=== PATIENT | female | born 1960 | race Caucasian/White ===

== ENCOUNTER → 2016-06-23 | Outpatient (CLI) | payer OTHER ==
[2016-06-23 08:20] LABS: FREE T4 1.18 NG/DL (0.76-1.46)
== END ==
LOC: M LAB 07:14
PROVIDERS: ATTEND Internal Medicine Endocrinology, Diabetes & Metabolism
DX: E04.9 Nontoxic goiter, unspecified (principal)

== ENCOUNTER → 2018-01-17 | Outpatient (CLI) | payer OTHER | LOC: M WUC 15:16 | DX: S83.421A Sprain of lateral collateral ligament of right knee, initial encounter (principal); X58.XXXA Exposure to other specified factors, initial encounter; Y92.89 Other specified places as the place of occurrence of the external cause; M17.11 Unilateral primary osteoarthritis, right knee | CPT/HCPCS: 73564 ==

== ENCOUNTER → 2018-11-13 | Outpatient (REF) | payer OTHER ==
[2018-11-14 13:11] LABS: CALCIUM, URINE 12.1 MG/DL; CREATININE, URINE 49.7 MG/DL
[2018-11-14 19:25] LABS: CALCIUM, 24 HOUR URINE 199.6 MG/24HR (42-353)
== END ==
LOC: M LAB REF 09:46
PROVIDERS: ATTEND Internal Medicine Endocrinology, Diabetes & Metabolism
DX: C73 Malignant neoplasm of thyroid gland (principal); E89.0 Postprocedural hypothyroidism; E89.2 Postprocedural hypoparathyroidism; M85.80 Other specified disorders of bone density and structure, unspecified site

== ENCOUNTER → 2019-05-27 | Outpatient (CLI) | payer OTHER ==
--- NOTE | 2019-05-27 11:26 | REP ---
RENAL ULTRASOUND: Real-time sonographic evaluation of kidneys performed. Kidneys are normal in size and echotexture, right kidney measuring 11.0 x 5.4 x 4.1 cm and left kidney 10.6 x 4.8 x 6.1 cm. There is no hydronephrosis, mass, or definite stone bilaterally. Ureteral jets are visualized in the urinary bladder bilaterally with Doppler color evaluation. IMPRESSION: Negative renal ultrasound. Electronically Signed by Avery Adamson MD 05/27/2019 03:57 P
== END ==
LOC: M RAD 09:50
PROVIDERS: ATTEND Internal Medicine Endocrinology, Diabetes & Metabolism
DX: E89.2 Postprocedural hypoparathyroidism (principal)

== ENCOUNTER → 2021-10-10 | Outpatient (REF) | payer OTHER | LOC: M LAB REF 17:22 | PROVIDERS: ATTEND Surgery | DX: D17.24 Benign lipomatous neoplasm of skin and subcutaneous tissue of left leg (principal) ==

== ENCOUNTER → 2021-12-26 | Outpatient (REF) | payer OTHER | LOC: M SFHCDERM 13:08 | PROVIDERS: ATTEND Nurse Practitioner Family | DX: L82.1 Other seborrheic keratosis (principal) ==

== ENCOUNTER → 2023-09-20 | Outpatient (CLI) | payer OTHER | LOC: M WHC 12:28 | PROVIDERS: ATTEND Internal Medicine Endocrinology, Diabetes & Metabolism | DX: M85.89 Other specified disorders of bone density and structure, multiple sites (principal) ==

== ENCOUNTER → 2024-05-06 | Outpatient (REF) | payer OTHER | LOC: M SFHCDERM 12:15 | PROVIDERS: ATTEND Nurse Practitioner Family | DX: T14.8XXA Other injury of unspecified body region, initial encounter (principal) ==

== ENCOUNTER → 2024-06-29 | Outpatient (REF) | payer OTHER | LOC: M LAB REF 17:53 | PROVIDERS: ATTEND Surgery | DX: C43.62 Malignant melanoma of left upper limb, including shoulder (principal) ==

== ENCOUNTER → 2024-10-15 | Outpatient (REF) | payer OTHER | LOC: M SFHCDERM 18:18 | PROVIDERS: ATTEND Physician Assistant | DX: L90.5 Scar conditions and fibrosis of skin (principal) ==

== ENCOUNTER → 2025-01-29 | Outpatient (REF) | payer OTHER | LOC: M LAB REF 17:19 | PROVIDERS: ATTEND Plastic Surgery Surgery of the Hand | DX: L90.5 Scar conditions and fibrosis of skin (principal) ==